=== PATIENT | male | born 1960 | race Caucasian/White ===

== ENCOUNTER → 2016-12-04 | Day surgery (SDC) | payer BC ==
[~2016-12-04] MED LIST: BUPIVACAINE HCL PF 0.75% 30 ML VIAL ONE; IBUP800T23 PO; LACTATED RINGER'S 1000 ML INJ 1,000 ML ONE; LIDOCAINE 1.5%/EPINEPHrine 1:200,000 PF SOLN 30 ML AMP ONE; LISI-515 PO; LISI10TA3 PO; METF1000 PO; MIDAZOLAM HCL 5 MG/ML VIAL (1 ML) ONE; PROPOFOL 200 MG/20 ML AMP IV ONE; ROSU20 PO; ceFAZolin 2 GM PREMIX 50 ML ONE
--- NOTE | 2016-12-05 11:51 | MP ---
cc: JUSTIN PATEL DATE OF SURGERY 12/04/2016 PREOPERATIVE DIAGNOSIS Left shoulder rotator cuff tear, left shoulder impingement syndrome, left shoulder SLAP labral tear. POSTOPERATIVE DIAGNOSES Left shoulder rotator cuff tear, left shoulder impingement syndrome, left shoulder SLAP labral tear. PROCEDURE Left shoulder arthroscopic rotator cuff repair, left shoulder arthroscopic subacromial decompression, left shoulder arthroscopic extensive debridement of SLAP labral tear. SURGEON Dr. Justin Patel MARKETING INFORMATION ANALYST [place]EL Carballo ANESTHESIA General with an anterior interscalene block. ESTIMATED BLOOD LOSS Less than 10 cc COMPLICATIONS None IMPLANTS USED Arthrex JUSTIFICATION This patient is a 56-year-old male who injured his left shoulder. He has had persistent symptoms of pain and weakness in regards to his condition and failed conservative treatment. Clinical exam, as well as MRI confirmed the above-named findings. The patient was counseled as to the risks, benefits and alternatives to the above-named proposed surgical procedure. He did wish to surgery with surgery. PROCEDURE IN DETAIL A written consent was obtained. The patient identified by name, taken to the operating room, placed supine on the operating table. General anesthesia was administered, as well as two grams of IV Ancef. The patient carefully turned to a right lateral decubitus position. A lateral arm roll was placed. All bony prominences and pressure points were well padded. The patient's neck was kept neutral. An arthroscopic arm florez was gently applied to the left upper extremity with 10 pounds of traction placed. The left shoulder prepped and draped using as Isopropyl alcohol, Hibiclens solution and DuraPrep solution. Standard posterior and anterior glenohumeral arthroscopic portals were established. The glenohumeral joint revealed significant labral tearing along the anterior, superior and posterior portions. An arthroscopic shaver was introduced from the anterior portal and extensive debridement of the labrum was performed to include the 9 o'clock position up to the 12 O'clock position and back down to the 3 o'clock position. Biceps origin was intact. Minimal chondromalacia of the glenohumeral joint was noted. Attention was turned to the subacromial space. There was evidence of significant impingement with bursitis. An arthroscopic shaver was introduced from the lateral port and a subacromial decompression was performed. The shaver was used to perform extensive bursectomy. An arthroscopic bur was used to perform an acromioplasty and the cautery device was used to release the coracoacromial ligament. There is evidence of a full-thickness tear along the insertion site of the supraspinatus tendon. An arthroscopic bur was used to decorticate the greater tuberosity in preparation for rotator cuff tendon repair. An Arthrex scorpion device was used to shuttle #2 FiberTape suture in a horizontal mattress pattern through the torn tendon. The sutures were then placed through the eyelet of an Arthrex 4.75 mm Bio Swivel lock anchor. A pilot boat operator hole was created in the tuberosity and the anchor was then inserted into the tuberosity after appropriate tensioning of sutures. The rotator cuff tendon repair was probed and noted to have good stability and fixation. The arthroscopic portals were closed with 3-0 Prolene suture. Sterile dressings were applied. The patient was placed in a sling and swath immobilizer. He tolerated the procedure well with no intraoperative noted. Nain Can, physician bioinformatics assistant certified, was present during the entire procedure to include patient positioning and the procedure itself. The medical necessity of a physician bioinformatics assistant was indicated in this case due to the complexity of the procedure. He assisted with manipulation of the camera and also manipulation of the arm. He assisted with visualization and during the arthroscopic procedure, as well shuttling of sutures and implantation of the suture anchor for purposes of rotator cuff tendon repair. MD LEX Marie/SHANA /3:57 PM /11:36 AM
== END | disposition home or self-care (01) ==
LOC: ESDC 12:56
PROVIDERS: ATTEND Orthopaedic Surgery Sports Medicine
DX: M75.122 Complete rotator cuff tear or rupture of left shoulder, not specified as traumatic (principal); M75.42 Impingement syndrome of left shoulder; S43.432A Superior glenoid labrum lesion of left shoulder, initial encounter
CPT/HCPCS: 01630; 01991; 29823; 29826; 29827; 64417; C1713; J0690; J2250; J3010; J7120